=== PATIENT | male | born 2000 | race Caucasian/White ===

== ENCOUNTER 2022-02-28 10:29 | Outpatient (REF) | payer OTHER, SELFPAY ==
[2022-02-28 13:52] LABS: Hematocrit 43.7 % (42.0-52.0); Hemoglobin 14.6 g/dl (14.0-18.0); Mean Corpuscular HGB Conc 33.4 g/dl (31.0-36.0); Mean Corpuscular Hemoglobin 30.4 pg (27.0-33.0); Mean Corpuscular Volume 90.9 fL (80.0-98.0); Mean Platelet Volume 11.2 fL (9.4-12.4); Platelet Count 273 X10*3/uL (160-400); Red Blood Count 4.81 X10*6/uL (4.60-5.80); Red Cell Distribution Width 12.2 % (11.0-16.0); White Blood Count 4.2 X10*3/uL (4.8-10.8)
[2022-02-28 14:15] LABS: Alanine Aminotransferase 36 U/L (0-40); Albumin Level 4.4 g/dL (3.5-5.0); Alkaline Phosphatase 75 U/L (39-117); Anion Gap 13 (12-20); Aspartate Amino Transferase 37 U/L (5-37); Bilirubin Total 0.9 mg/dL (0.0-1.0); Blood Urea Nitrogen 13 mg/dL (9-16); Calcium 9.6 mg/dL (8.4-10.2); Carbon Dioxide 27 mmol/L (22-29); Chloride 104 mmol/L (96-108); Cholesterol 167 mg/dL; Estimated Glomerular Filt Rate > 60; Glucose Fasting 85 mg/dL (60-99); HDL Cholesterol 49 mg/dL; LDL Cholesterol Calculated 103 mg/dl; Potassium 4.5 mmol/L (3.3-5.1); Sodium 139 mmol/L (135-145); Total Protein 7.1 g/dL (6.5-8.0); Triglycerides 76 mg/dL
[2022-02-28 14:23] LABS: Thyroid Stimulating Hormone 0.91 uIU/mL (0.32-4.0); Vitamin D 25-OH Total 26.1 ng/mL (>30)
== END 2022-02-28 10:30 | disposition home or self-care (01) ==
LOC: HO.HMGCLDS 10:29
PROVIDERS: PCP Internal Medicine; Visit Provider Internal Medicine
DX: F90.0 Attention-deficit hyperactivity disorder, predominantly inattentive type (principal)
CPT/HCPCS: 36415; 80053; 80061; 82306; 84443; 85027

== ENCOUNTER 2024-08-03 08:01 | Outpatient (REF) | payer OTHER, SELFPAY ==
--- OUTSIDE RECORDS SUMMARY | 2024-08-03 08:05 | XMS_ITS | Continuity of Care Document ---
Author Name [facility] Organization [facility] Care Team Providers Care Front End Specialist Name Role Phone [facility] Unavailable Unavailable Medications Combined list of outpatient medications from Department of Defense and Veterans Affairs facilities.Medications provided include 1) outpatient medications from the last 15 months, and 2) patient-reported medications. Medication Details Route Status Patient Instructions Prescription Expires Prescription Number Last Dispense Date Ordering Provider Order Date Order Qty Source acetaminoph en 325 mg oral tablet 2 tab(s), Oral, every 6 hr, PRN pain or fever, Take 2 tabs every 6 hours for pain. Not to exceed 4000 mg/day, # 30 tab(s), 0 total refill(s ), Acute, 09/30/22 11:00:00 PM CDT, Pharmacy : [facility] Oral (given by mouth) Complet ed 10/01/2022 3 2022 30.0 0035C-N [facility] AMOX TR-POTASSIU M CLAVULANATE (AMOXICILLI N/POTASSIUM CLAV), 875-125 MG, TABLET, ORAL, [facility], 20 ea. BOTTLE Active [id number] 2023 20 Pharmac y Data Transac tion Service Facilit y ibuprofen 800 mg oral tablet 1 tab(s), Oral, every 8 hr, Take 1 tab every 8 hours for pain. Not to exceed 3200 mg/day. Take with food or milk, # 30 tab(s), 0 total refill(s ), Acute, 09/30/22 11:00:00 PM CDT, Pharmacy : [facility] Oral (given by mouth) Complet ed 10/01/2022 3 2022 30.0 0035C-N [facility] [place] 5 mg-325 mg oral tablet 1 tab(s), Oral, every 4 hr, PRN pain, Take 1 tab by mouth every 4-6 hours as needed for pain not controll ed by ibuprofe n or tylenol. Do not to exceed 8 tablets/ day, # 12 tab(s), 0 total refill(s ), Acute, 09/30/22 11:00:00 PM CDT, Pharmacy : [facility] Oral (given by mouth) Complet ed 10/01/2022 3 2022 12.0 0035C-N [facility] Peridex 0.12% mucous membrane liquid 15 mL, Oral, BID, swish and spit; do not swallow, # 473 mL, 0 total refill(s ), Maintena nce, Pharmacy : [facility] Oral (given by mouth) Ordered 3 2022 473.0 0035C-N [facility] PREDNISONE (prednisone ), 10 MG, TABLET, ORAL, NOVITIUM/AN I PH, 1000 ea. BOTTLE Active [id number] 2023 Pharmac y Data Transac tion Service Facilit y Allergies, Adverse Reactions, Alerts Combined list of allergies from Department of Defense and Veterans Affairs facilities. It does not include entries that were removed or entered in error. Substance Category Reaction Severity Reaction type Status Date Reported Comments Source No Known Allergies Drug allergy (disorder) active 9 [facility] Immunizations Combined list of available immunizations from the Department of Defense and Veterans Affairs facilities. Immunization Series Date Given Administered By Site Reaction Lot Number CVX Code Drug [employer] Status Comments Source influenza, injectable, quadrivalent- pf 2020 [id number] 150 Seqirus complet ed influenza , injectabl e, quadrival ent-pf 04/29/20 Given Ambulat ory Pharmac y hepatitis B adult vaccine 2020 [id number] GlaxoSmithKli ne complet ed hepatitis B adult vaccine 04/29/20 Given Ambulat ory Pharmac y hepatitis B pediatric/ado lescent 2018 [place] [id number] GlaxoSmithKli ne complet ed hepatitis B pediatric /adolesce nt 02/01/19 Given Ambulat ory Pharmac y hepatitis B vaccine, pediatric or pediatric/ado lescent dosage 1 2018 ROSA ISELA BRYANT [id number] SmithKline (SKB) complet ed hepatitis B vaccine, pediatric or pediatric /adolesce nt dosage DoD influenza virus vaccine, inactivated 2018 zzRig ht Arm [id number] 88 Seqirus complet ed influenza virus vaccine, inactivat ed 01/22/19 Given Ambulat ory Pharmac y Seasonal, quadrIvalent, recombinant, injectable influenza vaccine, preservative free 1 2018 LIMON MARIA ALEJANDRA Drummond [id number] 185 Seqirus (SEQ) complet ed Seasonal, quadrIval ent, recombina nt, injectabl e influenza vaccine, preservat jean pierre free DoD hepatitis B vaccine, pediatric or pediatric/ado lescent dosage 0 2018 08 () Not Given hepatitis B vaccine, pediatric or pediatric /adolesce nt dosage DoD poliovirus vaccine, inactivated 2018 zzRig ht Arm [id number] complet ed polioviru s vaccine, inactivat ed 12/24/18 Given Ambulat ory Pharmac y hepatitis B pediatric/ado lescent 2018 zzLef t Arm [id number] 08 GlaxoSmithKli ne complet ed hepatitis B pediatric /adolesce nt 12/24/18 Given Ambulat ory Pharmac y hepatitis B vaccine, pediatric or pediatric/ado lescent dosage 2 2018 [place] [id number] 08 SmithKline (SKB) complet ed hepatitis B vaccine, pediatric or pediatric /adolesce nt dosage DoD poliovirus vaccine, inactivated 1 2018 [place] [id number] Transcribed (TRS) complet ed polioviru s vaccine, inactivat ed DoD measles and rubella virus vaccine 0 2018 04 () Not Given measles and rubella virus vaccine DoD varicella virus vaccine 0 2018 21 () Not Given varicella virus vaccine DoD adenovirus vaccine, live 2018 [id number] Teva Pharmaceutica ls complet ed adenoviru s vaccine, live 11/20/18 Given Ambulat ory Pharmac y tetanus, diphtheria, acellular pertu is 2018 zzLef t Arm [id number] 115 GlaxoSmithKli ne complet ed tetanus, diphtheri a, acellular pertussis 11/20/18 Given Ambulat ory Pharmac y meningococcal oligosacchari de (MCV4O) 2018 zzRig ht Arm [id number] sanofi pasteur complet ed meningoco ccal oligosacc haride (MCV4O) 11/20/18 Given Ambulat ory Pharmac y tuberculin purified protein derivative 2018 zzLef t Arm [id number] 96 sanofi pasteur complet ed tuberculi n purified protein derivativ e 11/20/18 Given Ambulat ory Pharmac y hepatitis B pediatric/ado lescent 2018 zzLef t Arm [id number] 08 GlaxoSmithKli ne complet ed hepatitis B pediatric /adolesce nt 11/20/18 Given Ambulat ory Pharmac y hepatitis B vaccine, pediatric or pediatric/ado lescent dosage 1 2018 MARY GIPSON [id number] 08 SmithKline (SKB) complet ed hepatitis B vaccine, pediatric or pediatric /adolesce nt dosage DoD tuberculin skin test; purified protein derivative solution, intradermal 1 2018 MARY GIPSON [id number] 96 Sanofi Pasteur (PMC) complet ed tuberculi n skin test; purified protein derivativ e solution, intraderm al DoD tetanus toxoid, reduced diphtheria toxoid, and acellular pertu is vaccine, adsorbed 1 2018 MARY GIPSON 525NP 115 SmithKline (SKB) complet ed tetanus toxoid, reduced diphtheri a toxoid, and acellular pertussis vaccine, adsorbed DoD meningococcal oligosacchari de (groups A, C, Y and W-135) diphtheria toxoid conjugate vaccine (MCV4O) 1 2018 MARY GIPSON [id number] 136 Sanofi Pasteur (PMC) complet ed meningoco ccal oligosacc haride (groups A, C, Y and W-135) diphtheri a toxoid conjugate vaccine (MCV4O) DoD Adenovirus, type 4 and type 7, live, oral 1 2018 MARY GIPSON [id number] 143 [facility] ([facility] complet ed Adenoviru s, type 4 and type 7, live, oral DoD Encounters Combined list of: 1) Encounters from Department of Veterans Affairs facilities going backup to the last 18 months, not all VA inpatient encounters are included; 2) Encounters from the Department of Defense facilities going backup to 280 months. Location Location Details Encounter Type Encounter Number Reason For Visit Attending Provider ADM Date DC Date Status Disposition Source [facility] Felicita stovall(MCRD Hearing Conservat ion) OUTPATIENT [id number] PAVEL HODGSON 11/18 Released w/o Limitations [facility] Enzo coombs([facility] D Hearing Conserv ation) [facility] Felicita n[facility] OUTPATIENT [id number] ANTOINETTE GONZALEZ 11/19 Released w/o Limitations [facility] Enzo coombs([facility] D Optomet ry Clinic) [facility] Felicita n[facility] [employer]) OUTPATIENT [id number] INITIAL VISIT FOR IMMUNIZ ATIONS MARY GIPSON 11/20 Released w/o Limitations [facility] Enzo coombs([facility] D [employer] ) [facility] OUTPATIENT [id number] SECOND VISIT FOR IMMUNIZ ATIONS MARY GIPSON 12/24 Released w/o Limitations [facility] Enzo coombs([facility] D [employer] ) [facility] Enzo sia([facility] Third BN BAS) OUTPATIENT [id number] Notes Entered by: HOLLAND POSEY 21 Jan 2019 1258 ------- ------- ------- ------- -- L/3006- flu shot ANDRZEJ REYES 01/21 Released w/o Limitations [facility] Enzo coombs([facility] D Third BN BAS) [facility] Felicita stovall[facility] Duty [facility]ick [facility]) OUTPATIENT [id number] Notes Entered by: Travis GENAO 02 Feb 2019 0648 ------- ------- ------- ------- -- L/3006- cough SATHYA VERDUGO 02/02 Released w/o Limitations [facility] Enzo coombs(MCR D Duty Sick Call) [place], [place](Tam [place]) OUTPATIENT [id number] Notes Entered by: BRITNEY VALENZUELA 15 Apr 2019 0715 ------- ------- ------- ------- -- R BIG TOE SPLIT OPEN RAMAN NICHOLAS 04/14 Released with Work/Duty Limitations [facility] [place] [facility] Lani Masters MD(Physic al Exam) OUTPATIENT [id number] Notes Entered by: FANG CALIX 09 Jun 2019 0737 ------- ------- ------- ------- -- [facility] reserve screeni ALIZE Will 06/08 Released w/o Limitations [facility] Lani Masters MD(Phys ical Exam) [id number] [id number] Outpatient [id number] AJ CLEMENTS 09/01 Discharge Disposition: Home or Self Care [id number] [facility] Procedures Combined list of: 1) Procedures from Department of Veterans Affairs facilities going back up to thelast 18 months, not all VA non-surgical procedures are included; 2) All procedures from the Department of Defense facilities. Procedure Procedure Type Code Date Perfomer Comments Sourc e No data available for this section [facility] IMMUNIZATION ADMINISTRATION (INCLUDES PERCUTANEOUS, INTRADERMAL, SUBCUTANEOUS, OR INTRAMUSCULAR INJECTIONS); 1 VACCINE (SINGLE OR COMBINATION VACCINE/TOXOID) [facility] IMMUNIZATION ADMINISTRATION (INCLUDES PERCUTANEOUS, INTRADERMAL, SUBCUTANEOUS, OR INTRAMUSCULAR INJECTIONS); EACH ADDITIONAL VACCINE (SINGLE OR COMBINATION VACCINE/TOXOID) [facility] ADENOVIRUS VACCINE, TYPE 4, LIVE, FOR ORAL USE [facility] SCREENING TEST OF VISUAL ACUITY, QUANTITATIVE, BILATERAL [facility] PHYS/OTH QUALIFIED HEALTH WATER FILTRATION TECHNICIAN QUALIFIED,EDUCATIO N,TRAIN,LICENSURE/ REGULATION (WHEN APPLICABLE) EDUC SER RENDERED TO PATS IN A GRP SETTING (EG,,OBESI TY,OR DIABETIC INSTRUCT) 019 [facility] Threshold Audiogram (Pure Tone) Automated Threshold Audiogram (Pure Tone) Automated [address].-[employer] -[employer] [address] MARCOS DELACRUZ Screening Test Of Visual Acuity, Quantitative, Bilateral Screening Test Of Visual Acuity, Quantitative, Bilateral 07117 ANTOINETTE GONZALEZ Skin Test Anergy Tuberculin Intradermal Skin Test Anergy Tuberculin Intradermal 14136 [facility] [place] [facility] Supervised Injection Intramuscular Antibiotic Supervised Injection Intramuscular Antibiotic 50190 [facility] [place] [facility] Venipuncture Venipuncture 39643 [facility] Immunization Administration One Vaccine Immunization Administration One Vaccine 18390 [facility] Immunization Administration Each Additional Vaccine Immunization Administration Each Additional Vaccine 61971 YENIFERCHERYL [facility] Immunization Admin Intranasal / Oral Each Additional Vaccine Immunization Admin Intranasal / Oral Each Additional Vaccine 90853 [facility] [place] [facility] Vaccines Adenovirus Type 7 Live, For Oral Use Vaccines Adenovirus Type 7 Live, For Oral Use 31646 [facility] [place] [facility] Tdap Vaccine Tdap Vaccine 53403 [facility] [place] [facility] Vaccines Adenovirus Type 4 Live, For Oral Use Vaccines Adenovirus Type 4 Live, For Oral Use 28630 [facility] Hepatitis B Vaccine (Active); To 11 Years Hepatitis B Vaccine (Active); [place] To 11 Years [address] [place] Hep B, adolescent or pediatric (19yr and younger); Series #: 2; .5 mL; IM; Left Arm; Mfg: SmithKline; Lot: [id number]; VIS given (Mary: 09/24/18; 12/15/14 - Multiple). [facility] Vaccines Viral Polio, Inactivated (Salk) Vaccines Viral Polio, Inactivated (Salk) [address]879 [place] IPV; Series #: 1; 0.5 mL; IM; Right Arm; Mfg: Transcribed; Lot: [id number]; VIS given (Mary: 08/30/15; 12/15/14 - Multiple). DoD Social History Combined list of available smoking, tobacco, and other social history from Department of Defense and Veterans Affairs facilities. Social History Type Response Date Comment [facility] e Sexual Orientation Ambula tory Pharmacy Gender identity Ambulator y Pharmacy Sex Representation Male (finding) Un known Organization This section is an empty soc ial history section. DoD Assessment and Plan Combined list of future care activities from Department of Defense and Veterans Affairs facilities (e.g., assessment and plan notes, appointments, orders, and referrals). Additional future care activities may be listed in the Plan of Care section. Result Assessment and Plan Date Source Assessment and Plan No data available for this section 08/03/2024 Ambulatory Pharmacy Functional Status Combined list of recent functional and cognitive assessments recorded at Department of Defense and Veterans Affairs (VA).VA Functional [place] Measurement (FIM) Scale: 1 = Total Assistance (Subject = 0% +), 2 = Maximal Assistance (Subject = 25% +), 3 = Moderate Assistance (Subject = 50% +), 4 = Minimal Assistance (Subject = 75% +), 5 = Supervision, 6 = Modified Bill[place] (Device), 7 = Complete [place] (Timely, Safely). Assessment Date/Time Source Assessment Type Assessment Skill Assessment Score Assessment Details No data available for this section
[2024-08-03 12:53] LABS: MANUAL DIFF FLAG NO
[2024-08-03 13:09] LABS: Basophils Absolute Auto 0.1 X10*3/uL (0.0-0.2); Eosinophils Absolute Auto 0.2 X10*3/uL (0.0-0.4); Eosinophils Percent Auto 3.3 % (0-4); Hemoglobin 13.6 g/dl (14.0-18.0); Imm Gran Abs Auto 0.01 X10*3/uL (0.00-0.03); Imm Gran Pct Auto 0.2 % (0.0-0.4); Lymphocytes Percent Auto 37.7 % (20-40); Mean Corpuscular Volume 91.1 fL (80.0-98.0); Monocytes Absolute Auto 0.5 X10*3/uL (0.1-1.2); Neutrophils Absolute Auto 2.5 x10*3/uL (2.0-8.3); Neutrophils Percent Auto 47.8 % (45-73); Platelet Count 270 X10*3/uL (160-400); Red Blood Count 4.39 X10*6/uL (4.60-5.80); Red Cell Distribution Width 13.4 % (11.0-16.0); White Blood Count 5.2 X10*3/uL (4.8-10.8)
[2024-08-03 13:24] LABS: Alanine Aminotransferase 35 U/L (0-40); Albumin Level 4.4 g/dL (3.5-5.0); Alkaline Phosphatase 60 U/L (39-117); Anion Gap 14 (12-20); Aspartate Amino Transferase 35 U/L (5-37); Bilirubin Total 1.1 mg/dL (0.0-1.0); Blood Urea Nitrogen 12 mg/dL (9-16); Calcium 9.3 mg/dL (8.4-10.2); Carbon Dioxide 24 mmol/L (22-29); Chloride 105 mmol/L (96-108); Cholesterol 195 mg/dL (<200); Estimated Glomerular Filt Rate > 60; Glucose Random 79 mg/dL (60-115); HDL Cholesterol 62 mg/dL (>40); LDL Cholesterol Calculated 108 mg/dL (<100); Potassium 4.4 mmol/L (3.3-5.1); Sodium 139 mmol/L (135-145); Total Protein 6.9 g/dL (6.5-8.0); Triglycerides 129 mg/dL (<150)
== END 2024-08-03 08:02 | disposition home or self-care (01) ==
LOC: HO.MANLDS 08:01
PROVIDERS: Visit Provider Internal Medicine
DX: Z00.00 Encounter for general adult medical examination without abnormal findings (principal); Z82.49 Family history of ischemic heart disease and other diseases of the circulatory system
CPT/HCPCS: 36415; 80053; 80061; 85025